=== PATIENT | female | born 1980 | race Caucasian/White ===

== ENCOUNTER 2024-04-14 21:04 | Emergency (ER) | payer BC ==
[2024-04-14 22:16] LABS: BASOPHILS PERCENT AUTO 0.2 % (0.0-1.0); EOSINOPHILS ABSOLUTE AUTO 0.2 K/mm3 (0.0-0.4); EOSINOPHILS PERCENT AUTO 2.6 % (0.0-6.0); HEMOGLOBIN 8.8 gm/dl (12.0-16.0); IMMATURE GRAN ABSOLUTE AUTO 0.09 K/mm3 (0.00-0.05); LYMPHOCYTES ABSOLUTE AUTO 2.6 K/mm3 (1.0-4.8); LYMPHOCYTES PERCENT AUTO 28.2 % (24.0-44.0); MEAN CORPUSCULAR HEMOGLOBIN 20.1 pg (28.0-32.0); MEAN CORPUSCULAR HGB CONC 28.4 g/dl (32.0-36.0); MEAN CORPUSCULAR VOLUME 70.8 fl (83.0-99.0); MONOCYTES ABSOLUTE AUTO 0.5 K/mm3 (0.0-0.8); MONOCYTES PERCENT AUTO 5.8 % (0.0-8.0); NEUTROPHILS ABSOLUTE AUTO 5.8 K/mm3 (1.8-7.7); NEUTROPHILS PERCENT AUTO 62.2 % (41.0-71.0); PLATELET COUNT,PLT 300 K/mm3 (150-400); RED BLOOD CELL COUNT 4.38 M/mm3 (4.10-5.30); WHITE BLOOD CELL COUNT,WBC 9.25 K/mm3 (3.9-11.3)
[2024-04-14 22:23] LABS: INR 0.98; PROTHROMBIN TIME 10.4 SECONDS (9.7-12.0)
[2024-04-14 22:25] LABS: PTT,PARTIAL THROMBOPLSTIN TIME 25.7 SECONDS (21.7-31.4)
[2024-04-14] MEDS: Iopamidol 612 MG/ML 100 ML Bottle IVPUSH ONE (22:25)
[2024-04-14 22:39] LABS: A/G RATIO 0.7 (1-2); ALBUMIN 3.3 g/dl (3.4-5.0); ANION GAP 16.9 (5-15); BILIRUBIN TOTAL 0.4 mg/dL (0.2-1.0); BUN/CREATININE RATIO 7.3 (14-18); C-REACTIVE PROTEIN 3.61 mg/dL (<0.30); CALCIUM 8.6 mg/dL (8.5-10.1); CREATININE 1.1 mg/dL (0.55-1.02); EST CRCL DRUG DOSING (CG) 47.37 mL/min; MAGNESIUM 1.9 mg/dL (1.8-2.4); POTASSIUM,K 3.9 mEq/L (3.5-5.1); PROTEIN TOTAL,TP 7.8 g/dl (6.4-8.2)
[2024-04-14 22:42] LABS: HEMOGLOBIN A1C 5.2 %
[2024-04-14 22:43] LABS: LACTIC ACID 2.1 mmol/L (0.4-2.0)
[2024-04-14] MEDS: Metoclopramide 10 MG/2 ML SDV IVPUSH ONE (22:44)
[2024-04-14] MEDS: Dextrose 5%-0.9% NaCl 1,000 ML IV SCH (22:44)
[2024-04-14] MEDS: Hyoscyamine 0.125 MG Tab.SL SL ONE (22:44)
[2024-04-15] MEDS: HYDROmorphone 1 MG/ML Syringe IVPUSH ONE (00:08)
[2024-04-15 06:54] LABS: IRON,FE 26 ug/dL (50-170); PERCENT FE SATURATION 7 % (20-55); TRANSFERRIN 307 mg/dL (202-364)
[2024-04-15 07:40] LABS: TOTAL IRON BINDING CAPACITY 384 ug/dL (100-400)
== END 2024-04-15 00:16 | disposition home or self-care (01) ==
LOC: JD.ED 21:04
DX: R07.9 Chest pain, unspecified (principal); K44.9 Diaphragmatic hernia without obstruction or gangrene; E66.9 Obesity, unspecified; Z88.7 Allergy status to serum and vaccine; Z68.44 Body mass index [BMI] 60.0-69.9, adult
CPT/HCPCS: 36415; 71045; 74177; 80053; 80307; 83036; 83540; 83605; 83690; 83735; 83880; 84443; 84466; 84484; 85025; 85379; 85610; 85730; 86140; 93005; 96361; 96374; 99285; A9270; J2765; J7042; Q9967; 93010; 99284

== ENCOUNTER 2024-04-15 19:37 | Emergency (ER) | payer BC ==
[2024-04-15 20:42] LABS: BASOPHILS PERCENT AUTO 0.1 % (0.0-1.0); EOSINOPHILS ABSOLUTE AUTO 0.1 K/mm3 (0.0-0.4); EOSINOPHILS PERCENT AUTO 0.7 % (0.0-6.0); HEMATOCRIT 28.6 % (37.0-47.0); HEMOGLOBIN 8.2 gm/dl (12.0-16.0); IMMATURE GRAN ABSOLUTE AUTO 0.12 K/mm3 (0.00-0.05); IMMATURE GRAN PERCENT AUTO 0.9 % (0.0-0.4); LYMPHOCYTES ABSOLUTE AUTO 1.2 K/mm3 (1.0-4.8); LYMPHOCYTES PERCENT AUTO 9.8 % (24.0-44.0); MEAN CORPUSCULAR HEMOGLOBIN 20.3 pg (28.0-32.0); MEAN CORPUSCULAR HGB CONC 28.7 g/dl (32.0-36.0); MEAN PLATELET VOLUME 8.6 fl (9.4-12.3); MONOCYTES ABSOLUTE AUTO 0.6 K/mm3 (0.0-0.8); MONOCYTES PERCENT AUTO 4.8 % (0.0-8.0); NEUTROPHILS ABSOLUTE AUTO 10.6 K/mm3 (1.8-7.7); NEUTROPHILS PERCENT AUTO 83.7 % (41.0-71.0); PLATELET COUNT,PLT 248 K/mm3 (150-400); RED BLOOD CELL COUNT 4.03 M/mm3 (4.10-5.30); WHITE BLOOD CELL COUNT,WBC 12.69 K/mm3 (3.9-11.3)
[2024-04-15 20:50] LABS: APPEARANCE,URINE SLT CLOUDY (Clear); BILIRUBIN,URINE NEGATIVE (Negative); COLOR,URINE YELLOW (Yellow); GLUCOSE,URINE NEGATIVE (Negative); KETONES,URINE TRACE (Negative); LEUKOCYTE ESTERASE,URINE 1+ (Negative); NITRITE,URINE NEGATIVE (Negative); OCCULT BLOOD,URINE 3+ (Negative); PROTEIN,URINE 3+ (Negative); UROBILINOGEN,URINE 0.2 (0.2-1.0)
[2024-04-15 21:05] LABS: BACTERIA,URINE MANY /hpf (FEW); MUCUS,URINE FEW /hpf (FEW); RBC,URINE >100 /hpf (0-5); WBC,URINE 40-50 /hpf (0-5)
[2024-04-15 21:06] LABS: A/G RATIO 0.7 (1-2); ALBUMIN 3.2 g/dl (3.4-5.0); ANION GAP 14.7 (5-15); BILIRUBIN TOTAL 0.3 mg/dL (0.2-1.0); BUN/CREATININE RATIO 6.7 (14-18); CALCIUM 8.7 mg/dL (8.5-10.1); CREATININE 1.5 mg/dL (0.55-1.02); EST CRCL DRUG DOSING (CG) 34.74 mL/min; MAGNESIUM 1.8 mg/dL (1.8-2.4); POTASSIUM,K 3.7 mEq/L (3.5-5.1); PROTEIN TOTAL,TP 7.6 g/dl (6.4-8.2)
[2024-04-15] MEDS: Dicyclomine 20 MG/2 ML SDV IM ONE (21:06)
[2024-04-15] MEDS: cefTRIAXone 1 GM in Sodium Chloride 0.9% 100 ML IV ONE (22:02)
[2024-04-15] MEDS: Sodium Chloride 0.9% 10 ML Syringe FLUSH PRN (22:04)
[2024-04-15] MEDS ORDERED: Naloxone 0.4 MG/ML SDV IVPUSH PRN (22:22)
[2024-04-15] MEDS: Morphine 2 MG/ML SYRINGE IVPUSH ONE (22:28)
[2024-04-15] MEDS: Ondansetron 4 MG/2 ML SDV IVPUSH ONE (22:41)
[2024-04-16] MEDS: oxyCODONE 5 MG Tab PO ONE (01:11)
[2024-04-16] MEDS: oxyCODONE ER 10 MG TAB.ER PO ONE (01:12)
== END 2024-04-16 01:10 | disposition home or self-care (01) ==
LOC: JD.ED 19:37
DX: N30.00 Acute cystitis without hematuria (principal); N23 Unspecified renal colic; Z88.7 Allergy status to serum and vaccine; Z79.899 Other long term (current) drug therapy
CPT/HCPCS: 36415; 80053; 81001; 83735; 85025; 87086; 87088; 87186; 96365; 96372; 96375; 99284; A9270; J0500; J0696; J2270; J2405; J3490

== ENCOUNTER 2025-02-16 19:21 | Emergency (ER) | payer BC ==
[2025-02-16] MEDS: Acetaminophen/oxyCODONE 325-5 MG Tab PO ONE (21:51)
[2025-02-16] MEDS: Ondansetron 4 MG Tab.DIS PO ONE (21:52)
== END 2025-02-16 22:06 | disposition home or self-care (01) ==
LOC: JD.ED 19:21
DX: N85.8 Other specified noninflammatory disorders of uterus (principal); Z88.7 Allergy status to serum and vaccine; Z79.899 Other long term (current) drug therapy
CPT/HCPCS: 99283; A9270; 99284